=== PATIENT | male | born 1975 | race Caucasian/White ===

== ENCOUNTER 2021-09-12 10:28 | Day surgery (SDC) | payer BC, MEDICAID, SELFPAY ==
[2021-09-10 14:18] VITALS: BMI 22.2
--- NOTE | 2021-09-12 | US_ITS ---
WS: [email or web address] ULTRASOUND-GUIDED PARACENTESIS CLINICAL INFORMATION: ASCITES COMPARISON: None. Procedure Informed consent: The risks, benefits, and alternatives of the procedure were discussed with the angelica ent. Verbal and written consent was obtained. Timeout: A timeout was performed to confirm the correct patient, procedure, and site. Preparation: A suitable skin site was identified. The patient was prepped and draped in usual sterile fashion. Lidocaine 1% was used for local anesthesia. Catheter: 4 [place] One-step Yueh catheter. Side: LEFT Lower quadrant. Fluid Volume: 5000 ml Color: Clear yellow DISPOSITION: Discarded safely. Complications: None. US/US paracentesis abd w [id number] IMPRESSION: Uncomplicated ultrasound-guided paracentesis. Removal of 5000 cc clear yellow ascites
[2021-09-12] MEDS: lidocaine 1% INJ 20 mL XX (11:09)
== END 2021-09-12 11:50 | disposition home or self-care (01) ==
PROVIDERS: Radiology Neuroradiology; PCP Family Medicine; Visit Provider Nurse Practitioner Family
PROC: (CPT 49082; principal; 2021-09-12 12:00)
DX: R18.8 Other ascites (principal)
CPT/HCPCS: 49083; P9047

== ENCOUNTER 2021-09-24 12:07 | Day surgery (SDC) | payer BC, MEDICAID, SELFPAY ==
[2021-09-24 12:13] VITALS: BP 130/97; PULSE 88; RESP 16; O2SAT 100
--- NOTE | 2021-09-24 12:32 | US_ITS ---
WS: [email or web address] ULTRASOUND-GUIDED PARACENTESIS CLINICAL INFORMATION: ascities COMPARISON: None. Procedure Informed consent: The risks, benefits, and alternatives of the procedure were discussed with the angelica ent. Verbal and written consent was obtained. Timeout: A timeout was performed to confirm the correct patient, procedure, and site. Preparation: A suitable skin site was identified. The patient was prepped and draped in usual sterile fashion. Lidocaine 1% was used for local anesthesia. Catheter: 4 [place] One-step Yueh catheter. Side: RIGHT Lower quadrant. Fluid Volume: 5000 ml Color: Clear yellow DISPOSITION: Discarded safely. Complications: None. Patient disposition: Discharged from the department in stable condition. US/US paracentesis abd w [id number] IMPRESSION: Uncomplicated ultrasound-guided paracentesis. Removal of 5000 cc clear yellow ascites
[2021-09-24] MEDS: lidocaine 1% INJ 20 mL 6 ML INJECTION (13:04)
== END 2021-09-24 13:35 | disposition home or self-care (01) ==
LOC: GILAB 12:08
PROVIDERS: PCP Family Medicine; Visit Provider Nurse Practitioner Family
PROC: (CPT 49082; principal; 2021-09-24 13:00)
DX: R18.8 Other ascites (principal)
CPT/HCPCS: 49083; P9047

== ENCOUNTER 2021-10-10 10:57 | Day surgery (SDC) | payer BC, MEDICAID, SELFPAY ==
[2021-10-08 10:14] VITALS: BMI 25.7
--- NOTE | 2021-10-10 11:06 | US_ITS ---
NOTE: Report was unsigned for reason: Ordering provider was edited. Original Signature date and time was: 10/10/2021 1352 WS: [email or web address] ULTRASOUND-GUIDED PARACENTESIS CLINICAL INFORMATION: cirrhosis of liver with ascites COMPARISON: None. Procedure Informed consent: The risks, benefits, and alternatives of the procedure were discussed with the patient. Verbal and written consent was obtained. Timeout: A timeout was performed to confirm the correct patient, procedure, and site. Preparation: A suitable skin site was identified. The patient was prepped and draped in usual sterile fashion. Lidocaine 1% was used for local anesthesia. Catheter: 4 [place] One-step [place] catheter. Side: LEFT Lower quadrant. Fluid Volume: 5000 ml Color: Clear yellow DISPOSITION: Discarded safely. Complications: None. Patient disposition: Discharged from the department in stable condition. [facility]US paracentesis abd w [id number] IMPRESSION: Uncomplicated ultrasound-guided paracentesis. Removal of 5,000 cc
[2021-10-10 11:22] VITALS: BP 113/90; PULSE 102; RESP 16; TEMP 36.4; O2SAT 100
== END 2021-10-10 13:15 | disposition home or self-care (01) ==
LOC: GILAB 10:59
PROVIDERS: Radiology Neuroradiology; PCP Family Medicine; Visit Provider Nurse Practitioner Family
PROC: (CPT 49082; principal; 2021-10-10 12:00)
DX: K74.60 Unspecified cirrhosis of liver (principal); R18.8 Other ascites
CPT/HCPCS: 49083; 96365; P9047

== ENCOUNTER 2021-10-24 10:29 | Day surgery (SDC) | payer BC, MEDICAID, SELFPAY ==
[2021-10-22 11:57] VITALS: BMI 20.6
[2021-10-24 10:42] VITALS: BP 126/93; PULSE 80; RESP 18; TEMP 36.1; O2SAT 98
--- NOTE | 2021-10-24 11:17 | US_ITS ---
WS: [email or web address] ULTRASOUND-GUIDED PARACENTESIS CLINICAL INFORMATION: ascites COMPARISON: None. Procedure Informed consent: The risks, benefits, and alternatives of the procedure were discussed with the angelica ent. Verbal and written consent was obtained. Timeout: A timeout was performed to confirm the correct patient, procedure, and site. Preparation: A suitable skin site was identified. The patient was prepped and draped in usual sterile fashion. Lidocaine 1% was used for local anesthesia. Catheter: 4 [place] One-step Yueh catheter. Side: LEFT Lower quadrant. Fluid Volume: 5000 ml Color: Yellow DISPOSITION: Discarded safely. Complications: None. Patient disposition: Discharged from the department in stable condition. US/US paracentesis abd w [id number] IMPRESSION: Uncomplicated ultrasound-guided paracentesis. Removal of 5000 cc of ascites
[2021-10-24 11:58] VITALS: BP 114/80; PULSE 78; RESP 18; O2SAT 98
[2021-10-24 12:34] VITALS: BP 116/82; PULSE 88; RESP 18; O2SAT 99
== END 2021-10-24 12:35 | disposition home or self-care (01) ==
LOC: GILAB 10:31
PROVIDERS: Radiology Neuroradiology; PCP Family Medicine; Visit Provider Nurse Practitioner Family
PROC: (CPT 49082; principal; 2021-10-24 12:00)
DX: R18.8 Other ascites (principal)
CPT/HCPCS: 49083; 96365; P9047

== ENCOUNTER 2021-11-07 11:12 | Day surgery (SDC) | payer BC, MEDICAID, SELFPAY ==
[2021-11-06 12:22] VITALS: BMI 21.4
--- NOTE | 2021-11-07 11:19 | US_ITS ---
WS: [email or web address] ULTRASOUND-GUIDED THERAPEUTIC PARACENTESIS Procedure, risks, and complications have been explained to the patient. Consent is obtained. Utilizing aseptic technique and 1% buffered lidocaine, a small dermatome was made through which a 5 F rench Yueh catheter was inserted. Approximately 5000 ml of clear peritoneal fluid was obtained witho ut difficulty. No complications encountered. US/US paracentesis abd w [id number] IMPRESSION: Uncomplicated paracentesis yielding 5000 ml of peritoneal fluid.
[2021-11-07 11:28] VITALS: BP 143/106; PULSE 83; RESP 18; TEMP 36.3; O2SAT 100
[2021-11-07] MEDS: lidocaine 1% INJ 20 mL 7 ML INJECTION (12:28)
== END 2021-11-07 13:15 | disposition home or self-care (01) ==
LOC: GILAB 11:14
PROVIDERS: Radiology Diagnostic Radiology; PCP Family Medicine; Visit Provider Nurse Practitioner Family
PROC: (CPT 49082; principal; 2021-11-07 12:00)
DX: R18.8 Other ascites (principal)
CPT/HCPCS: 49083; P9047

== ENCOUNTER → 2021-11-21 11:01 | Day surgery (SDC) | payer BC, MEDICAID, SELFPAY ==
--- NOTE | 2021-11-21 11:06 | US_ITS ---
WS: [email or web address] ULTRASOUND-GUIDED THERAPEUTIC PARACENTESIS Procedure, risks, and complications have been explained to the patient. Consent is obtained. Utilizing aseptic technique and 1% buffered lidocaine, a small dermatome was made through which a 5 F rench Yueh catheter was inserted. Approximately 5000 ml of clear peritoneal fluid was obtained witho ut difficulty. No complications encountered. US/US paracentesis abd w [id number] IMPRESSION: Uncomplicated paracentesis yielding 5000 ml of peritoneal fluid.
[2021-11-21 11:19] VITALS: BP 137/92; PULSE 66; RESP 18; TEMP 36.4; O2SAT 99; BMI 19.8
[2021-11-21] MEDS: lidocaine 1% INJ 20 mL 8 ML SUBCUT (11:42)
== END ==
PROVIDERS: Radiology Diagnostic Radiology; PCP Family Medicine; Visit Provider Nurse Practitioner Family
PROC: (CPT 49082; principal; 2021-11-21 12:00)
DX: R18.8 Other ascites (principal)
CPT/HCPCS: 49083; 96365; P9047

== ENCOUNTER 2021-12-05 10:48 | Day surgery (SDC) | payer BC, MEDICAID, SELFPAY ==
[2021-12-03 08:18] VITALS: BMI 19.5
--- NOTE | 2021-12-05 10:56 | US_ITS ---
WS: [email or web address] ULTRASOUND-GUIDED THERAPEUTIC PARACENTESIS Procedure, risks, and complications have been explained to the patient. Consent is obtained. Utilizing aseptic technique and 1% buffered lidocaine, a small dermatome was made through which a 5 F rench Yueh catheter was inserted. Approximately 5000 ml of clear peritoneal fluid was obtained witho ut difficulty. No complications encountered. US/US paracentesis abd w [id number] IMPRESSION: Uncomplicated paracentesis yielding 5000 ml of peritoneal fluid.
[2021-12-05 11:02] VITALS: BP 169/101; PULSE 80; RESP 18; TEMP 36.2; O2SAT 100
== END 2021-12-05 12:30 | disposition home or self-care (01) ==
LOC: GILAB 10:52
PROVIDERS: Radiology Diagnostic Radiology; PCP Family Medicine; Visit Provider Nurse Practitioner Family
PROC: (CPT 49082; principal; 2021-12-05 12:00)
DX: K74.60 Unspecified cirrhosis of liver (principal); R18.8 Other ascites
CPT/HCPCS: 49083; 96365; P9047

== ENCOUNTER 2021-12-19 11:17 | Day surgery (SDC) | payer BC, MEDICAID, SELFPAY ==
--- NOTE | 2021-12-19 11:23 | US_ITS ---
WS: [email or web address] ULTRASOUND-GUIDED THERAPEUTIC PARACENTESIS Procedure, risks, and complications have been explained to the patient. Consent is obtained. Utilizing aseptic technique and 1% buffered lidocaine, a small dermatome was made through which a 5 F rench Yueh catheter was inserted. Approximately 4500 ml of clear peritoneal fluid was obtained witho ut difficulty. No complications encountered. US/US paracentesis abd w [id number] IMPRESSION: Uncomplicated paracentesis yielding 4500 ml of peritoneal fluid.
[2021-12-19 11:29] VITALS: BP 125/82; PULSE 76; RESP 18; TEMP 36.4; O2SAT 97
[2021-12-19] MEDS: lidocaine 1% INJ 20 mL XX (12:06)
== END 2021-12-19 12:44 | disposition home or self-care (01) ==
PROVIDERS: PCP Family Medicine; Visit Provider Nurse Practitioner Family
PROC: (CPT 49082; principal; 2021-12-19 12:00)
DX: K74.60 Unspecified cirrhosis of liver (principal); R18.8 Other ascites
CPT/HCPCS: 49083; P9047

== ENCOUNTER 2022-01-02 11:22 | Day surgery (SDC) | payer BC, MEDICAID, SELFPAY ==
--- NOTE | 2022-01-02 11:41 | US_ITS ---
WS: [email or web address] ULTRASOUND-GUIDED PARACENTESIS CLINICAL INFORMATION: cirrhosis of liver with ascites, unspecified hepatic cirrhoi COMPARISON: None. Procedure Informed consent: The risks, benefits, and alternatives of the procedure were discussed with the angelica ent. Verbal and written consent was obtained. Timeout: A timeout was performed to confirm the correct patient, procedure, and site. Preparation: A suitable skin site was identified. The patient was prepped and draped in usual sterile fashion. Lidocaine 1% was used for local anesthesia. Catheter: 4 Hungarian One-step [place] catheter. Side: RIGHT Lower quadrant. Fluid Volume: 2400 ml Color: Clear yellow DISPOSITION: Discarded safely. Complications: None. Patient disposition: Discharged from the department in stable condition. US/US paracentesis abd w [id number] IMPRESSION: Uncomplicated ultrasound-guided paracentesis. Removal of 2400 cc clear yellow ascites
[2022-01-02 11:47] VITALS: BP 154/104; PULSE 82; RESP 16; TEMP 36.1; O2SAT 98
== END 2022-01-02 13:16 | disposition home or self-care (01) ==
LOC: GILAB 11:24
PROVIDERS: Radiology Neuroradiology; PCP Family Medicine; Visit Provider Nurse Practitioner Family
PROC: (CPT 49082; principal; 2022-01-02 12:00)
DX: K74.60 Unspecified cirrhosis of liver (principal); R18.8 Other ascites
CPT/HCPCS: 49083; P9047

== ENCOUNTER 2022-01-16 09:41 | Day surgery (SDC) | payer BC, MEDICAID, SELFPAY ==
[2022-01-16 11:11] VITALS: BP 148/91; PULSE 74; RESP 18; TEMP 36.2; O2SAT 100
--- NOTE | 2022-01-16 11:15 | US_ITS ---
WS: [email or web address] INDICATION: Paracentesis TECHNIQUE: Ultrasound 4 quadrant FINDINGS: Four-quadrant ultrasound for paracentesis. Insufficient ascites for paracentesis today. US/US abdomen lmt fluid [id number] IMPRESSION: Insufficient fluid for paracentesis.
[2022-01-16 11:18] VITALS: BMI 17.4
== END 2022-01-16 11:37 | disposition home or self-care (01) ==
PROVIDERS: PCP Family Medicine; Visit Provider Nurse Practitioner Family
DX: R18.8 Other ascites (principal)
CPT/HCPCS: 76705

== ENCOUNTER 2022-01-28 12:48 | Day surgery (SDC) | payer BC, MEDICAID, SELFPAY ==
[2022-01-28 13:02] VITALS: BP 164/96; PULSE 66; RESP 18; TEMP 36.1; O2SAT 100
--- NOTE | 2022-01-28 13:03 | US_ITS ---
WS: [email or web address] ULTRASOUND ABDOMEN LIMITED CLINICAL INFORMATION: ascites COMPARISON: None. FINDINGS: 4 quadrant ultrasound for paracentesis. Only minimal ascites. Ultrasound paracentesis not performed t cristiano. US/US abdomen limited [id number] IMPRESSION: Minimal ascites
[2022-01-28 13:14] VITALS: BMI 19.8
== END 2022-01-28 14:13 | disposition home or self-care (01) ==
LOC: GILAB 12:50
PROVIDERS: Radiology Neuroradiology; PCP Family Medicine; Visit Provider Internal Medicine Nephrology
DX: R18.8 Other ascites (principal)
CPT/HCPCS: 76705

== ENCOUNTER 2022-03-13 10:45 | Day surgery (SDC) | payer BC, MEDICAID, SELFPAY ==
[2022-03-11 10:48] VITALS: BMI 16.2
[2022-03-13 10:57] VITALS: BP 143/97; PULSE 68; RESP 18; TEMP 36.2; O2SAT 98
--- NOTE | 2022-03-13 10:59 | US_ITS ---
WS: [email or web address] INDICATION: Ascites TECHNIQUE: Ultrasound for paracentesis FINDINGS: Four-quadrant ultrasound. US/US abdomen lmt fluid [id number] IMPRESSION: Insufficient fluid for paracentesis.
== END 2022-03-13 11:09 | disposition home or self-care (01) ==
PROVIDERS: PCP Family Medicine; Visit Provider Nurse Practitioner Family
PROC: (CPT 49082; principal; 2022-03-13 12:00)
DX: R18.8 Other ascites (principal)
CPT/HCPCS: 76705